=== PATIENT | female | born 1960 | race Caucasian/White ===

== ENCOUNTER 2021-08-17 11:16 | Inpatient (IN) | payer OTHER ==
[~2021-08-17] VITALS: Ht 167.6 cm; Wt 64.9 kg
[2021-08-17] MEDS ORDERED: SODIUM CHLORIDE 0.9% 1,000 ML IV ONE (12:30)
[2021-08-17 12:35] LABS: BASOPHILS % 0.2 % (0.0-2.0); EOSINOPHILS % 0.5 % (0.0-5.0); LYMPHOCYTES % 15.3 % (20.0-50.0); MEAN CORPUSCULAR HEMOGLOBIN 23.2 pg (28.0-32.0); MEAN CORPUSCULAR VOLUME 74.3 fL (81.0-99.0); MEAN PLATELET VOLUME 10.6 fl (7.4-10.4); MONOCYTES % 7.2 % (2.0-8.0); NEUTROPHILS % 76.8 % (40.0-76.0); PLATELET 264 x1000/uL (130-400); RED BLOOD CELL COUNT 4.31 mill/uL (4.2-5.4); RED CELL DISTRIBUTION WIDTH 16.8 % (11.6-14.6)
[2021-08-17 12:36] LABS: CHLORIDE 112 mEq/L (98-107)
[2021-08-17] MEDS ORDERED: DEXAMETHASONE 4MG/ML 1ML VIAL IV ONE (13:45)
[2021-08-17] MEDS ORDERED: DOCUSATE SODIUM 100MG CAPSULE PO PRN (17:15)
[2021-08-17] MEDS ORDERED: MAGNESIUM/ALUMINUM HYDROXIDE/SIMETHICONE 30ML UDC PO PRN (17:15)
[2021-08-17] MEDS ORDERED: ONDANSETRON HCL 4MG/2ML INJ IV PRN (17:15)
[2021-08-17] MEDS ORDERED: CLONIDINE 0.1MG TABLET PO PRN (17:15)
[2021-08-17] MEDS ORDERED: MORPHINE SULFATE 2 MG/ML CPJ (NOT FOR IM USE) IV PRN (17:15)
[2021-08-17] MEDS ORDERED: GUAIFENESIN 200MG/10ML SUGAR FREE UDC PO PRN (17:15)
[2021-08-17] MEDS ORDERED: LORAZEPAM 2MG/ML CPJ IV PRN (17:15)
[2021-08-17] MEDS ORDERED: ALBUTEROL 6.7GM HFA INHALER ORI PRN (17:15)
[2021-08-17] MEDS ORDERED: CEFTRIAXONE 1 G PREMIX 50 ML IV SCH (17:30)
[2021-08-17] MEDS ORDERED: AZITHROMYCIN 500MG/250ML 250 ML IV NR (17:30)
[2021-08-17] MEDS ORDERED: NALOXONE HCL 0.4MG/ML VIAL IV PRN (17:45)
[2021-08-17 20:00] VITALS: BP 82/32
[2021-08-17] MEDS ORDERED: SODIUM CHLORIDE 0.9% 500 ML IV ONE (20:45)
[2021-08-17] MEDS: SODIUM CHLORIDE 0.9% INJ 3ML FLUSH IVF SCH (21:11)
[2021-08-17] MEDS: ENOXAPARIN 40MG/0.4ML SYR SUBCUT SCH (21:12)
[2021-08-17] MEDS: ACETAMINOPHEN 325MG TABLET PO PRN (21:14)
[2021-08-17] MEDS: CEFTRIAXONE 1,000 MG in DEXTROSE 5% WATER 50 ML IV SCH (23:46)
[2021-08-17] MEDS: SODIUM CHLORIDE 0.9% 1,000 ML IV SCH (23:47)
[2021-08-17] MEDS: AZITHROMYCIN 500 MG in DEXT 5% WATER 250 ML IV SCH (23:47)
[2021-08-18] VITALS (8 sets, daily range): BP systolic 80–109; BP diastolic 29–42
[2021-08-18] MEDS: DIPHENHYDRAMINE 50MG/ML VIAL IV PRN ×2 (01:35→23:09)
[2021-08-18] MEDS ORDERED: HYDR-4135 MT (02:34)
[2021-08-18] MEDS ORDERED: CYM20 MT (02:34)
[2021-08-18] MEDS ORDERED: TOPA200 PO (02:34)
[2021-08-18] MEDS ORDERED: ZOLP10TA2 PO (02:34)
[2021-08-18] MEDS ORDERED: PANT40SU PO (02:34)
[2021-08-18 06:22] LABS: BASOPHILS % 0.3 % (0.0-2.0); HEMATOCRIT. 28.5 % (36.0-48.0); HEMOGLOBIN. 9.2 g/dL (12.0-16.0); LYMPHOCYTES % 18.6 % (20.0-50.0); MEAN CORPUSCULAR HEMOGLOBIN 23.8 pg (28.0-32.0); MONOCYTES % 7.6 % (2.0-8.0); NEUTROPHILS % 73.5 % (40.0-76.0); RED BLOOD CELL COUNT 3.85 mill/uL (4.2-5.4); RED CELL DISTRIBUTION WIDTH 16.8 % (11.6-14.6)
[2021-08-18 06:36] LABS: CHLORIDE 117 mEq/L (98-107)
[2021-08-18 08:36] LABS: PLATELET 229 x1000/uL (130-400)
[2021-08-18] MEDS ORDERED: SODIUM CHLORIDE 0.9% 500 ML IV ONE ×2 (09:00)
[2021-08-18] MEDS ORDERED: INFLUENZA VACCINE 05/PF 0.5 ML SYRINGE IM ONE (10:00)
[2021-08-18 10:01] LABS: T4 FREE 1.36 ng/dL (0.76-1.46)
[2021-08-18] MEDS: DEXAMETHASONE 10 MG/ML VIAL IV SCH (12:42)
[2021-08-18] MEDS: VANCOMYCIN 750 MG PREMIX 150 ML IV SCH ×2 (14:50→23:03)
[2021-08-18] MEDS: DULOXETINE HCL 60MG DR CAPSULE PO SCH (14:50)
[2021-08-18] MEDS: SODIUM CHLORIDE 0.9% INJ 3ML FLUSH IVF SCH ×2 (14:50→23:04)
[2021-08-18] MEDS: ACETAMINOPHEN 325MG TABLET PO PRN ×2 (15:27→23:09)
[2021-08-18 18:06] LABS: CLARITY URINE CLEAR (CLEAR); COLOR URINE YELLOW (YELLOW); KETONES URINE NEGATIVE (NEGATIVE); LEUKOCYTE ESTERASE URINE NEGATIVE (NEGATIVE); NITRITE URINE NEGATIVE (NEGATIVE); OCCULT BLOOD URINE NEGATIVE (NEGATIVE); PROTEIN URINE NEGATIVE (NEGATIVE); SPECIFIC GRAVITY URINE 1.011 (1.005-1.030); UROBILINOGEN URINE 0.2 E.U./dL (0.2-1.0)
[2021-08-18] MEDS: ENOXAPARIN 40MG/0.4ML SYR SUBCUT SCH (18:13)
[2021-08-18] MEDS: TOPIRAMATE 100MG TABLET PO SCH (21:00)
[2021-08-18 22:18] LABS: CREATINE KINASE 34 IU/L (26-192)
[2021-08-18 22:19] LABS: CREATINE KINASE MB FRACTION < 1.0 ng/mL (0.5-3.6)
[2021-08-18] MEDS: CEFTRIAXONE 1,000 MG in DEXTROSE 5% WATER 50 ML IV SCH (23:03)
[2021-08-18] MEDS: SODIUM CHLORIDE 0.9% 1,000 ML IV SCH (23:04)
[2021-08-18] MEDS: AZITHROMYCIN 500 MG in DEXT 5% WATER 250 ML IV SCH (23:08)
[2021-08-19] VITALS: BP 95/32
[2021-08-19 04:00] VITALS: BP 95/38
[2021-08-19] MEDS: GUAIFENESIN-DM 200MG-20MG/10ML UDC PO PRN ×2 (05:05→08:21)
[2021-08-19] MEDS: HYDROCODONE/ACETAMINOPHEN 5/325MG TABLET PO PRN ×2 (05:05→19:44)
[2021-08-19] MEDS: SODIUM CHLORIDE 0.9% INJ 3ML FLUSH IVF SCH ×3 (06:13→19:45)
[2021-08-19] MEDS: VANCOMYCIN 750 MG PREMIX 150 ML IV SCH (07:29)
[2021-08-19 07:56] LABS: CREATINE KINASE 24 IU/L (26-192)
[2021-08-19 07:57] LABS: CREATINE KINASE MB FRACTION < 1.0 ng/mL (0.5-3.6)
[2021-08-19 08:00] VITALS: BP 97/39
[2021-08-19] MEDS: DEXAMETHASONE 10 MG/ML VIAL IV SCH (08:22)
[2021-08-19] MEDS: DULOXETINE HCL 60MG DR CAPSULE PO SCH (08:22)
[2021-08-19 12:00] VITALS: BP 101/50
[2021-08-19] MEDS: SODIUM CHLORIDE 0.9% 1,000 ML IV SCH (15:58)
[2021-08-19 16:00] VITALS: BP 97/37
[2021-08-19] MEDS: VANCOMYCIN 1 G PREMIX 200 ML IV SCH (17:01)
[2021-08-19] MEDS: ENOXAPARIN 40MG/0.4ML SYR SUBCUT SCH (17:02)
[2021-08-19 19:36] VITALS: BP 105/49
[2021-08-19] MEDS ORDERED: AZITHROMYCIN 500MG in DEXTROSE 5% WATER 250ML IV SCH (21:00)
[2021-08-19] MEDS: CEFTRIAXONE 1,000 MG in DEXTROSE 5% WATER 50 ML IV SCH (22:14)
[2021-08-19] MEDS: ZOLPIDEM TARTRATE 5MG TABLET PO PRN (22:14)
[2021-08-19] MEDS: TOPIRAMATE 100MG TABLET PO SCH (22:15)
[2021-08-20] VITALS (7 sets, daily range): BP systolic 73–111; BP diastolic 35–50
[2021-08-20] MEDS: VANCOMYCIN 1 G PREMIX 200 ML IV SCH (06:54)
[2021-08-20 08:54] LABS: HEMATOCRIT. 27.9 % (36.0-48.0); HEMOGLOBIN. 8.7 g/dL (12.0-16.0); MEAN CORPUSCULAR HEMOGLOBIN 23.5 pg (28.0-32.0); MEAN CORPUSCULAR VOLUME 75.2 fL (81.0-99.0); MEAN PLATELET VOLUME 10.8 fl (7.4-10.4); PLATELET 335 x1000/uL (130-400); RED BLOOD CELL COUNT 3.71 mill/uL (4.2-5.4); RED CELL DISTRIBUTION WIDTH 16.4 % (11.6-14.6)
[2021-08-20 09:00] LABS: CHLORIDE 117 mEq/L (98-107)
[2021-08-20] MEDS: DULOXETINE HCL 60MG DR CAPSULE PO SCH (09:12)
[2021-08-20] MEDS: DEXAMETHASONE 10 MG/ML VIAL IV SCH (09:12)
[2021-08-20] MEDS: SODIUM CHLORIDE 0.9% 1,000 ML IV SCH (12:40)
[2021-08-20 15:23] LABS: PLATELET ESTIMATE NORMAL
[2021-08-20] MEDS: ASCORBIC ACID 500 MG TABLET PO SCH (16:48)
[2021-08-20] MEDS: ENOXAPARIN 40MG/0.4ML SYR SUBCUT SCH (16:48)
[2021-08-20] MEDS: ZOLPIDEM TARTRATE 5MG TABLET PO PRN (21:30)
[2021-08-20] MEDS: TOPIRAMATE 100MG TABLET PO SCH (21:30)
[2021-08-21] VITALS: BP 104/44
[2021-08-21 04:00] VITALS: BP 113/51
[2021-08-21 06:26] LABS: CHLORIDE 120 mEq/L (98-107)
[2021-08-21 07:11] LABS: HEMATOCRIT. 25.1 % (36.0-48.0); MEAN CORPUSCULAR HEMOGLOBIN 23.8 pg (28.0-32.0); MEAN CORPUSCULAR VOLUME 74.5 fL (81.0-99.0); MEAN PLATELET VOLUME 10.1 fl (7.4-10.4); PLATELET 307 x1000/uL (130-400); RED BLOOD CELL COUNT 3.37 mill/uL (4.2-5.4); RED CELL DISTRIBUTION WIDTH 16.3 % (11.6-14.6)
[2021-08-21 08:00] VITALS: BP 108/47
[2021-08-21] MEDS: DULOXETINE HCL 60MG DR CAPSULE PO SCH (08:20)
[2021-08-21] MEDS: ASCORBIC ACID 500 MG TABLET PO SCH ×3 (08:20→17:06)
[2021-08-21] MEDS: DEXAMETHASONE 10 MG/ML VIAL IV SCH (08:20)
[2021-08-21] MEDS: SODIUM CHLORIDE 0.9% 1,000 ML IV SCH (08:20)
[2021-08-21 12:00] VITALS: BP 98/74
[2021-08-21] MEDS: ACETAMINOPHEN 325MG TABLET PO PRN (12:19)
[2021-08-21 12:59] LABS: PLATELET ESTIMATE NORMAL
[2021-08-21 16:00] VITALS: BP 101/43
[2021-08-21] MEDS: ENOXAPARIN 40MG/0.4ML SYR SUBCUT SCH (17:06)
[2021-08-21 19:45] VITALS: BP 100/38
[2021-08-21] MEDS: TOPIRAMATE 100MG TABLET PO SCH (20:46)
[2021-08-22] VITALS: BP 93/39
[2021-08-22] MEDS: SODIUM CHLORIDE 0.9% 1,000 ML IV SCH ×2 (02:25→21:22)
[2021-08-22 04:00] VITALS: BP 110/41
[2021-08-22 08:00] VITALS: BP 111/44
[2021-08-22] MEDS: ASCORBIC ACID 500 MG TABLET PO SCH ×3 (08:25→17:43)
[2021-08-22] MEDS: DEXAMETHASONE 10 MG/ML VIAL IV SCH (08:25)
[2021-08-22] MEDS: DULOXETINE HCL 60MG DR CAPSULE PO SCH (08:25)
[2021-08-22] MEDS: ACETAMINOPHEN 325MG TABLET PO PRN (08:34)
[2021-08-22] MEDS: GUAIFENESIN-DM 200MG-20MG/10ML UDC PO PRN ×2 (08:37→18:01)
[2021-08-22 12:00] VITALS: BP 91/37
[2021-08-22 16:00] VITALS: BP 102/42
[2021-08-22] MEDS: ENOXAPARIN 40MG/0.4ML SYR SUBCUT SCH (17:43)
[2021-08-22 20:00] VITALS: BP 111/52
[2021-08-22] MEDS: TOPIRAMATE 100MG TABLET PO SCH (21:21)
[2021-08-22] MEDS: ZOLPIDEM TARTRATE 5MG TABLET PO PRN (21:41)
[2021-08-23 08:00] VITALS: BP 101/39
[2021-08-23] MEDS: DULOXETINE HCL 60MG DR CAPSULE PO SCH (08:48)
[2021-08-23] MEDS: DEXAMETHASONE 10 MG/ML VIAL IV SCH (08:48)
[2021-08-23] MEDS: ASCORBIC ACID 500 MG TABLET PO SCH ×3 (08:48→17:45)
[2021-08-23 12:00] VITALS: BP 95/30
[2021-08-23 16:00] VITALS: BP 95/42
[2021-08-23] MEDS: ENOXAPARIN 40MG/0.4ML SYR SUBCUT SCH (17:46)
[2021-08-23 20:00] VITALS: BP 112/43
[2021-08-23] MEDS: TOPIRAMATE 100MG TABLET PO SCH (20:38)
[2021-08-23] MEDS: ZOLPIDEM TARTRATE 5MG TABLET PO PRN (20:38)
[2021-08-23] MEDS: SODIUM CHLORIDE 0.9% 1,000 ML IV SCH (20:38)
[2021-08-23] MEDS: BENZONATATE 100MG CAPSULE PO PRN (20:47)
[2021-08-24] VITALS: BP 108/50
[2021-08-24 05:13] LABS: HEMATOCRIT. 26.7 % (36.0-48.0); HEMOGLOBIN. 8.5 g/dL (12.0-16.0); MEAN CORPUSCULAR HEMOGLOBIN 23.8 pg (28.0-32.0); MEAN PLATELET VOLUME 9.7 fl (7.4-10.4); PLATELET 369 x1000/uL (130-400); RED BLOOD CELL COUNT 3.56 mill/uL (4.2-5.4); RED CELL DISTRIBUTION WIDTH 16.6 % (11.6-14.6)
[2021-08-24 05:53] LABS: CHLORIDE 117 mEq/L (98-107)
[2021-08-24 08:00] VITALS: BP 92/35
[2021-08-24] MEDS: DULOXETINE HCL 60MG DR CAPSULE PO SCH (08:28)
[2021-08-24] MEDS: ASCORBIC ACID 500 MG TABLET PO SCH ×3 (08:28→16:08)
[2021-08-24] MEDS: BENZONATATE 100MG CAPSULE PO PRN ×2 (08:28→16:08)
[2021-08-24] MEDS: DEXAMETHASONE 10 MG/ML VIAL IV SCH (08:28)
[2021-08-24] MEDS: ACETAMINOPHEN 325MG TABLET PO PRN (08:31)
[2021-08-24 12:00] VITALS: BP 109/48
[2021-08-24] MEDS ORDERED: NALOXONE HCL 0.4MG/ML VIAL IV PRN (12:00)
[2021-08-24] MEDS: HYDROCODONE/ACETAMINOPHEN 5/325MG TABLET PO PRN (12:05)
[2021-08-24 16:00] VITALS: BP 93/34
[2021-08-24] MEDS: SODIUM CHLORIDE 0.9% 1,000 ML IV SCH (16:08)
[2021-08-24] MEDS: ENOXAPARIN 40MG/0.4ML SYR SUBCUT SCH (16:08)
[2021-08-24 19:43] LABS: PLATELET ESTIMATE NORMAL
[2021-08-24 20:00] VITALS: BP 99/27
[2021-08-24] MEDS: TOPIRAMATE 100MG TABLET PO SCH (21:14)
[2021-08-24] MEDS: ZOLPIDEM TARTRATE 5MG TABLET PO PRN (21:14)
[2021-08-25] VITALS (7 sets, daily range): BP systolic 86–108; BP diastolic 31–55
[2021-08-25] MEDS: BENZONATATE 100MG CAPSULE PO PRN (03:19)
[2021-08-25 07:09] LABS: HEMATOCRIT. 27.1 % (36.0-48.0); HEMOGLOBIN. 8.7 g/dL (12.0-16.0); MEAN CORPUSCULAR VOLUME 74.9 fL (81.0-99.0); MEAN PLATELET VOLUME 9.1 fl (7.4-10.4); PLATELET 384 x1000/uL (130-400); RED BLOOD CELL COUNT 3.61 mill/uL (4.2-5.4); RED CELL DISTRIBUTION WIDTH 16.8 % (11.6-14.6)
[2021-08-25 07:16] LABS: CHLORIDE 118 mEq/L (98-107)
[2021-08-25] MEDS: HYDROCODONE/ACETAMINOPHEN 5/325MG TABLET PO PRN (08:45)
[2021-08-25] MEDS: ASCORBIC ACID 500 MG TABLET PO SCH ×3 (08:45→17:51)
[2021-08-25] MEDS: DEXAMETHASONE 10 MG/ML VIAL IV SCH (08:46)
[2021-08-25] MEDS: DULOXETINE HCL 60MG DR CAPSULE PO SCH (08:46)
[2021-08-25] MEDS: SODIUM CHLORIDE 0.9% 1,000 ML IV SCH (13:03)
[2021-08-25 13:22] LABS: BG BASE EXCESS -4.3 mmol/L (-2.0-2.0); BG CARBOXYHEMOGLOBIN 0.3 % (0.5-1.5); BG DEOXYHEMOGLOBIN 1.8 % (0.0-5.0); BG HCO3 ACT 18.4 mmol/L (22.0-26.0); BG METHEMOGLOBIN 0.3 % (0.0-1.5); BG OXYGEN SATURATION 98.2 % (92.0-98.5); BG OXYHEMOGLOBIN 97.6 % (94.0-97.0); BG PCO2 25.8 mmHg (35.0-45.0); BG PH 7.471 (7.350-7.450); BG PO2 130.2 mmHg (75.0-100.0); BG SAMPLE SITE RIGHT RADIAL; BG TOTAL HEMOGLOBIN 9.4 g/dL (12.0-18.0); BG VENT MODE ROOM AIR
[2021-08-25 16:46] LABS: PLATELET ESTIMATE NORMAL
[2021-08-25] MEDS: ENOXAPARIN 40MG/0.4ML SYR SUBCUT SCH (17:51)
[2021-08-25] MEDS: ZOLPIDEM TARTRATE 5MG TABLET PO PRN (22:04)
[2021-08-25] MEDS: TOPIRAMATE 100MG TABLET PO SCH (22:04)
[2021-08-26 04:00] VITALS: BP 99/42
[2021-08-26 07:36] LABS: HEMATOCRIT. 25.2 % (36.0-48.0); MEAN CORPUSCULAR HEMOGLOBIN 23.7 pg (28.0-32.0); MEAN CORPUSCULAR VOLUME 74.5 fL (81.0-99.0); MEAN PLATELET VOLUME 9.2 fl (7.4-10.4); PLATELET 352 x1000/uL (130-400); RED BLOOD CELL COUNT 3.39 mill/uL (4.2-5.4); RED CELL DISTRIBUTION WIDTH 16.9 % (11.6-14.6)
[2021-08-26 07:40] LABS: CHLORIDE 117 mEq/L (98-107)
[2021-08-26 07:47] LABS: C REACTIVE PROTEIN QUANT 3.3 mg/L (0.0-3.0)
[2021-08-26 08:00] VITALS: BP 98/36
[2021-08-26] MEDS: ASCORBIC ACID 500 MG TABLET PO SCH ×3 (08:29→17:16)
[2021-08-26] MEDS: DEXAMETHASONE 10 MG/ML VIAL IV SCH (08:30)
[2021-08-26] MEDS: BENZONATATE 100MG CAPSULE PO PRN ×2 (08:30→17:16)
[2021-08-26] MEDS: DULOXETINE HCL 60MG DR CAPSULE PO SCH (08:33)
[2021-08-26] MEDS: SODIUM CHLORIDE 0.9% 1,000 ML IV SCH (08:36)
[2021-08-26] MEDS ORDERED: POTASSIUM CHLORIDE 20MEQ TABLET SR PO NR (09:15)
[2021-08-26 10:34] LABS: NUCLEATED RED BLOOD CELLS 1 /100 WBC; PLATELET ESTIMATE NORMAL
[2021-08-26 12:00] VITALS: BP 95/37
[2021-08-26 16:00] VITALS: BP 90/36
[2021-08-26] MEDS: ENOXAPARIN 40MG/0.4ML SYR SUBCUT SCH (17:17)
[2021-08-26 20:00] VITALS: BP 108/48
[2021-08-26] MEDS: ACETAMINOPHEN 325MG TABLET PO PRN (21:51)
[2021-08-26] MEDS: TOPIRAMATE 100MG TABLET PO SCH (21:52)
[2021-08-26 22:27] VITALS: BP 108/48
[2021-08-27] VITALS: BP 93/40
== END 2021-08-27 02:50 | disposition short-term general hospital (02) | DRG 871 ==
LOC: ER 12:16 → 7WST 15:49 → ENRESERV 17:06
PROVIDERS: ADMIT Internal Medicine; ATTEND Internal Medicine
DX: A41.1 Sepsis due to other specified staphylococcus (principal); U07.1 COVID-19; J96.01 Acute respiratory failure with hypoxia; J12.82 Pneumonia due to coronavirus disease 2019; E46 Unspecified protein-calorie malnutrition; D64.9 Anemia, unspecified; I10 Essential (primary) hypertension; G40.909 Epilepsy, unspecified, not intractable, without status epilepticus; G47.00 Insomnia, unspecified; D72.810 Lymphocytopenia; Z79.899 Other long term (current) drug therapy; Z68.23 Body mass index [BMI] 23.0-23.9, adult
CPT/HCPCS: 36415; 36600; 71045; 73030; 80048; 80053; 80202; 81003; 82375; 82550; 82553; 82728; 82805; 83615; 83880; 84145; 84439; 84443; 84484; 85025; 85379; 86140; 87077; 93005; 99291; J0456; J0696; J1100; J1200; J1650; J2060; J3370; J7030; J7040; J7060; U0003; U0005

== ENCOUNTER 2023-11-06 22:09 | Emergency (ER) | payer OTHER, MEDICARE ==
[~2023-11-06] VITALS: Ht 167.6 cm; Wt 75.0 kg
[~2023-11-06 22:09] MED LIST: CYM20 MT; HYDR-4135 MT; PANT40SU PO; TOPA200 PO; ZOLP10TA2 PO
[2023-11-06 22:15] VITALS: BP 91/39; PULSE 95; RESP 15; TEMP 98.6; O2SAT 100
== END 2023-11-07 03:00 | disposition left against medical advice (07) ==
LOC: ER 22:09
DX: F41.9 Anxiety disorder, unspecified (principal); Z53.21 Procedure and treatment not carried out due to patient leaving prior to being seen by health care provider
CPT/HCPCS: 99281